=== PATIENT | male | born 2000 | race Caucasian/White ===

== ENCOUNTER 2020-09-16 08:00 | Emergency (ER) | payer OTHER ==
[2020-09-16 08:59] LABS: HEMOGLOBIN 16.1 gm/dl (14.0-17.5); RED BLOOD COUNT 5.58 M/UL (4.20-5.50)
[2020-09-16 09:18] LABS: BUN/CREATININE RATIO 14 (0-10)
[2020-09-16] MEDS ORDERED: IMITREX50 MG PO (10:52)
== END 2020-09-16 11:18 | disposition home or self-care (01) ==
LOC: ER1 08:00
PROVIDERS: Emergency Medicine
DX: R51.9 Headache, unspecified (principal)
CPT/HCPCS: 70450; 70496; 80053; 85025; 96374; 96375; 99284; J0780; J1885; Q9967

== ENCOUNTER → 2020-09-18 | Outpatient (CLI) | payer OTHER ==
[~2020-09-18] MED LIST: IMITREX50 MG PO
== END ==
LOC: MRI 13:33
DX: R51.9 Headache, unspecified (principal); R93.0 Abnormal findings on diagnostic imaging of skull and head, not elsewhere classified
CPT/HCPCS: 70553; A9577

== ENCOUNTER → 2020-11-28 | Outpatient (CLI) | payer OTHER | LOC: EXRD 07:29 | DX: R10.84 Generalized abdominal pain (principal) | CPT/HCPCS: 76705 ==

== ENCOUNTER 2020-12-12 16:45 | Emergency (ER) | payer OTHER ==
[2020-12-12 17:27] LABS: HEMOGLOBIN 16.3 gm/dl (14.0-17.5); RED BLOOD COUNT 5.35 M/UL (4.20-5.50); WHITE BLOOD COUNT 8.8 K/UL (4.5-11.0)
[2020-12-12 17:45] LABS: BUN/CREATININE RATIO 12 (0-10)
[2020-12-12] MEDS ORDERED: KEFLEX750 MG PO (20:53)
[2020-12-12] MEDS ORDERED: PERCOCET 5/325 T1 EA PO (20:53)
== END 2020-12-12 21:26 | disposition home or self-care (01) ==
LOC: ER1 16:45
PROVIDERS: Emergency Medicine
DX: N32.3 Diverticulum of bladder (principal)
CPT/HCPCS: 80053; 81001; 83690; 85025; 96374; 96375; 99284; J2270; J2405; J7030; Q9967

== ENCOUNTER 2021-01-25 02:50 | Emergency (ER) | payer OTHER ==
[~2021-01-25 02:50] MED LIST changes: +KEFLEX750 MG PO; +PERCOCET 5/325 T1 EA PO
[2021-01-25] MEDS ORDERED: VISTARIL25 MG PO (04:11)
[2021-01-25] MEDS ORDERED: MACROBID 100 M100 MG PO ×2 (17:51→17:57)
[2021-01-25] MEDS ORDERED: PYRIDIUM100 MG PO ×2 (17:51→17:57)
== END 2021-01-25 04:00 | disposition home or self-care (01) ==
LOC: ER1 02:50
DX: T83.018A Breakdown (mechanical) of other urinary catheter, initial encounter (principal); F41.9 Anxiety disorder, unspecified
CPT/HCPCS: 81001; 87086; 99283; Q0177

== ENCOUNTER 2021-01-25 14:29 | Emergency (ER) | payer OTHER ==
[~2021-01-25 14:29] MED LIST changes: +VISTARIL25 MG PO
[2021-01-25 16:56] LABS: HEMOGLOBIN 15.4 gm/dl (14.0-17.5); RED BLOOD COUNT 5.09 M/UL (4.20-5.50); WHITE BLOOD COUNT 9.4 K/UL (4.5-11.0)
[2021-01-25 17:26] LABS: BUN/CREATININE RATIO 16 (0-10)
[2021-01-25] MEDS ORDERED: PYRIDIUM100 MG PO ×2 (17:51→17:57)
[2021-01-25] MEDS ORDERED: MACROBID 100 M100 MG PO ×2 (17:51→17:57)
== END 2021-01-25 17:56 | disposition home or self-care (01) ==
LOC: ER1 14:29
PROVIDERS: Physician Assistant
DX: T83.9XXA Unspecified complication of genitourinary prosthetic device, implant and graft, initial encounter (principal)
CPT/HCPCS: 80048; 81001; 85025; 87086; 99283

== ENCOUNTER 2021-05-07 19:33 | Emergency (ER) | payer OTHER ==
[~2021-05-07 19:33] MED LIST changes: +MACROBID 100 M100 MG PO; +PYRIDIUM100 MG PO
[2021-05-07] MEDS ORDERED: CEPHALEXIN500 M1 PO (20:25)
== END 2021-05-07 20:55 | disposition home or self-care (01) ==
LOC: ER1 19:33
DX: S91.331A Puncture wound without foreign body, right foot, initial encounter (principal); Z23 Encounter for immunization; W22.8XXA Striking against or struck by other objects, initial encounter; Y93.67 Activity, basketball; Y92.009 Unspecified place in unspecified non-institutional (private) residence as the place of occurrence of the external cause
CPT/HCPCS: 73630; 90471; 90715; 99283

== ENCOUNTER 2021-07-22 21:09 | Emergency (ER) | payer OTHER ==
[~2021-07-22 21:09] MED LIST changes: +CEPHALEXIN500 M1 PO
[2021-07-22 21:59] LABS: HEMOGLOBIN 15.6 gm/dl (14.0-17.5); RED BLOOD COUNT 5.2 M/UL (4.20-5.50)
[2021-07-22 22:27] LABS: BUN/CREATININE RATIO 11 (0-10)
== END 2021-07-23 02:32 | disposition home or self-care (01) ==
LOC: ER1 21:09
PROVIDERS: Student in an Organized Health Care Education/Training Program
DX: T67.5XXA Heat exhaustion, unspecified, initial encounter (principal); E86.0 Dehydration; Z20.822 Contact with and (suspected) exposure to COVID-19; X30.XXXA Exposure to excessive natural heat, initial encounter
CPT/HCPCS: 0240U; 71045; 80053; 82550; 82553; 84484; 85025; 93005; 99284

== ENCOUNTER 2021-09-18 15:18 | Emergency (ER) | payer OTHER ==
[2021-09-18 16:32] LABS: HEMOGLOBIN 15.9 gm/dl (14.0-17.5); RED BLOOD COUNT 5.33 M/UL (4.20-5.50); WHITE BLOOD COUNT 7.3 K/UL (4.5-11.0)
[2021-09-18 16:59] LABS: BUN/CREATININE RATIO 11 (0-10)
[2021-09-18] MEDS ORDERED: VISTARIL25 MG PO (18:00)
== END 2021-09-18 18:09 | disposition home or self-care (01) ==
LOC: ER1 15:18
PROVIDERS: Physician Assistant
DX: F41.9 Anxiety disorder, unspecified (principal); E86.0 Dehydration; K21.9 Gastro-esophageal reflux disease without esophagitis
CPT/HCPCS: 71045; 80053; 82550; 82553; 84484; 85025; 93005; 99285; Q0177

== ENCOUNTER 2021-10-01 20:01 | Emergency (ER) | payer OTHER ==
[2021-10-01 20:55] LABS: RED BLOOD COUNT 4.99 M/UL (4.20-5.50); WHITE BLOOD COUNT 7.3 K/UL (4.5-11.0)
[2021-10-01 21:13] LABS: BUN/CREATININE RATIO 12 (0-10)
[2021-10-02] MEDS ORDERED: IBUPROFEN600 MG PO (00:33)
== END 2021-10-02 00:39 | disposition home or self-care (01) ==
LOC: ER1 20:01
PROVIDERS: Emergency Medicine
DX: R51.9 Headache, unspecified (principal); R53.83 Other fatigue; R40.2410 Glasgow coma scale score 13-15, unspecified time; Z20.822 Contact with and (suspected) exposure to COVID-19
CPT/HCPCS: 0240U; 80053; 81001; 85025; 99284